=== PATIENT | female | born 1995 | race Caucasian/White ===

== ENCOUNTER 2022-06-18 05:06 | Inpatient (IN) | payer OTHER ==
[~2022-06-18] VITALS: Ht 154.9 cm; Wt 74.3 kg
[2022-06-18] VITALS (8 sets, daily range): BP systolic 111–126; BP diastolic 61–73
[~2022-06-18 05:06] MED LIST: LEVE1INJ5; PRENTAB9
[2022-06-18] MEDS ORDERED: LR 1,000 ML IV ONE (05:15)
[2022-06-18] MEDS ORDERED: LR 1,000 ML IV SCH ×2 (05:15→11:55)
[2022-06-18] MEDS ORDERED: BICITRA 30ML SOLN UDC PO ONE (06:00)
[2022-06-18 06:05] LABS: HEMATOCRIT 39.6 % (36.0-47.0); HEMOGLOBIN 13.5 g/dl (12.0-15.5); MEAN CORPUSCULAR HEMOGLOBIN 29.9 pg (27.0-33.0); MEAN CORPUSCULAR HGB CONC 34.1 g/dl (32.0-36.5); MEAN CORPUSCULAR VOLUME 87.8 fl (80.0-96.0); PLATELET COUNT, AUTOMATED 173 10^3/uL (150-450); RED BLOOD COUNT 4.51 10^6/uL (4.00-5.40); WHITE BLOOD COUNT 7.9 10^3/uL (4.0-10.0)
[2022-06-18 06:28] LABS: HEMOGLOBIN A1c 5.2 %
[2022-06-18] MEDS ORDERED: ACETAMINOPHEN 650 MG SUPP PR ONE (07:00)
[2022-06-18] MEDS ORDERED: BUPIVACAINE HCL 0.25% 10ML VIAL SC ONE (07:00)
[2022-06-18] MEDS ORDERED: ceFAZolin SOD 2 GM in IV 1 EA IV ONE (07:00)
[2022-06-18] MEDS ORDERED: AZITHROMYCIN INJ 500 MG, VIAL MATE ADAPTER 1 EACH in NS 250 ML IV ONE (07:00)
[2022-06-18] MEDS ORDERED: KETOROLAC 60MG 2ML VIAL As Ordered ONE (08:49)
[2022-06-18] MEDS ORDERED: MORPHINE PRES-FREE INJ 10 MG/10 ML VIAL As Ordered ONE (08:49)
[2022-06-18] MEDS ORDERED: OXYTOCIN INJ 10 UNITS/ML VIAL (J2590) As Ordered ONE ×2 (08:49→09:48)
[2022-06-18] MEDS: PRENATAL VITAMINS CHEWABLE TABLET PO SCH (09:00)
[2022-06-18 09:46] LABS: CORD GAS ABE V -1.7; CORD GAS HCO3 V 23.1 MEQ/L; CORD GAS PCO2 V 39.5 mmHg; CORD GAS PH V 7.385 UNITS; CORD GAS PO2 V 37.6 mmHg; CORD GAS SBC V 22.7 MEQ/L; CORD GAS TCO2 V 24.3 MEQ/L
[2022-06-18 09:47] LABS: CORD GAS ABE A 1.1; CORD GAS HCO3 A 28.8 MEQ/L; CORD GAS O2 SAT A 36.4 %; CORD GAS PCO2 A 57.8 mmHg; CORD GAS PH A 7.316 UNITS; CORD GAS PO2 A 17.3 mmHg; CORD GAS SBC A 23.8 MEQ/L; CORD GAS TCO2 A 30.6 MEQ/L
[2022-06-18] MEDS ORDERED: PHENYLephrine 500MCG 5ML (100MCG/ML) SYRINGE As Ordered ONE (09:48)
[2022-06-18] MEDS ORDERED: ONDANSETRON 4MG 2ML VIAL As Ordered ONE (09:48)
[2022-06-18] MEDS ORDERED: OXYTOCIN INJ 10 UNITS/ML VIAL (J2590) IV ONE (11:05)
[2022-06-18] MEDS ORDERED: MOM 30ML SUSPENSION UDC PO PRN (11:05)
[2022-06-18] MEDS ORDERED: SIMETHICONE 80MG CHEW TAB PO PRN (11:05)
[2022-06-18] MEDS ORDERED: DOCUSATE SODIUM 100MG CAPSULE PO PRN (11:05)
[2022-06-18] MEDS ORDERED: ACETAMINOPHEN 500 MG TAB PO PRN (11:05)
[2022-06-18] MEDS ORDERED: RHOGAM 300 MCG (1500 IU) INJ (J2790) IM SCH (11:05)
[2022-06-18] MEDS ORDERED: METHYLERGONOVINE MALEATE 0.2 MG TAB PO PRN (11:05)
[2022-06-18] MEDS ORDERED: PERCOCET 5MG/325MG TAB PO PRN ×3 (11:05→11:55)
[2022-06-18] MEDS ORDERED: OXYTOCIN DRIP 30 UNITS in IV 1 EA IV ONE (11:05)
[2022-06-18] MEDS ORDERED: OXYTOCIN DRIP 30 UNITS in IV 1 EA IV SCH (11:05)
[2022-06-18] MEDS ORDERED: METHYLERGONOVINE MALEATE 0.2 MG/ML VIAL (J2210) IM PRN (11:05)
[2022-06-18] MEDS ORDERED: ANUSOL HC CREAM 30GM TOP PRN (11:05)
[2022-06-18] MEDS ORDERED: OXYTOCIN 30 UNITS IN 0.9% NaCl 500ML IV BAG (J2590) As Ordered ONE (11:36)
[2022-06-18] MEDS ORDERED: ONDANSETRON 4MG 2ML VIAL IV PRN (11:55)
[2022-06-18] MEDS ORDERED: NALOXONE INJ 0.4MG/1ML VIAL (J2310 PER 1MG) IV PRN ×2 (11:55)
[2022-06-18] MEDS ORDERED: **NOTE PATIENT COMMENT** MISC XX SCH (11:55)
[2022-06-18] MEDS: SLF 3 ML SYR IV SCH ×2 (11:55→19:55)
[2022-06-18] MEDS ORDERED: diphenhydrAMINE 50MG/ML VIAL (J1200) IV PRN (11:55)
[2022-06-18] MEDS ORDERED: fentaNYL 100 MCG/2 ML INJECTION IV PRN (11:55)
[2022-06-18] MEDS ORDERED: METOCLOPRAMIDE INJ 10MG/2ML VIAL (J2765 PER 1) IV PRN (11:55)
[2022-06-18] MEDS: LR 1,000 ML IV SCH ×3 (15:49→23:51)
[2022-06-18] MEDS: KETOROLAC 30 MG/ML 1ML VIAL IV SCH ×2 (17:08→22:02)
[2022-06-19 02:00] VITALS: BP 102/59
[2022-06-19] MEDS: SLF 3 ML SYR IV SCH (03:55)
[2022-06-19] MEDS: KETOROLAC 30 MG/ML 1ML VIAL IV SCH (04:03)
[2022-06-19 05:40] VITALS: BP 98/66
[2022-06-19 07:01] LABS: HEMATOCRIT 29.7 % (36.0-47.0); MEAN CORPUSCULAR HEMOGLOBIN 30.6 pg (27.0-33.0); PLATELET COUNT, AUTOMATED 133 10^3/uL (150-450); WHITE BLOOD COUNT 6.8 10^3/uL (4.0-10.0)
[2022-06-19 07:09] LABS: HEMOGLOBIN 10.1 g/dl (12.0-15.5)
[2022-06-19] MEDS: PRENATAL VITAMINS CHEWABLE TABLET PO SCH ×2 (09:00→10:11)
[2022-06-19 10:00] VITALS: BP 103/50
[2022-06-19 14:00] VITALS: BP 101/52
[2022-06-19] MEDS: IBUPROFEN 600MG TAB PO PRN ×2 (15:49→21:52)
[2022-06-19] MEDS ORDERED: HOME MED LIST COMPLETE! XX SCH (17:50)
[2022-06-19 18:00] VITALS: BP 115/56
[2022-06-19] MEDS: ACETAMINOPHEN TAB 650MG DOSE (2X325MG) PO PRN (18:26)
[2022-06-19 22:15] VITALS: BP 108/61
[2022-06-20 01:55] VITALS: BP 125/63
[2022-06-20 05:45] VITALS: BP 117/66
[2022-06-20] MEDS ORDERED: ACET1TAB55 PO (06:24)
[2022-06-20] MEDS ORDERED: IBUP-1022 PO (06:24)
[2022-06-20] MEDS ORDERED: COLA100C5 PO (06:24)
[2022-06-20] MEDS ORDERED: PERCOCET PO (06:24)
[2022-06-20] MEDS: PRENATAL VITAMINS CHEWABLE TABLET PO SCH (08:09)
[2022-06-20] MEDS: ACETAMINOPHEN TAB 650MG DOSE (2X325MG) PO PRN (08:10)
[2022-06-20] MEDS ORDERED: MEASLES,MUMPS,RUBELLA VACCINE INJ (MMR-II) (90707) SC.IMMUN ONE (09:00)
[2022-06-20] MEDS: IBUPROFEN 600MG TAB PO PRN (11:20)
== END 2022-06-20 12:00 | disposition home or self-care (01) | DRG 785 ==
LOC: M LDI 05:06 → EDSTATUS 07:30 → M OBS 12:03
PROVIDERS: ADMIT Obstetrics & Gynecology; ATTEND Obstetrics & Gynecology
PROC: 0UL70DZ Occlusion of Bilateral Fallopian Tubes with Intraluminal Device, Open Approach (ICD-10-PCS; 2022-06-18)
PROC: 10D00Z1 Extraction of Products of Conception, Low, Open Approach (ICD-10-PCS; principal; 2022-06-18 07:30)
DX: O34.211 Maternal care for low transverse scar from previous cesarean delivery (principal); O24.424 Gestational diabetes mellitus in childbirth, insulin controlled; Z3A.37 37 weeks gestation of pregnancy; Z37.0 Single live birth; Z30.2 Encounter for sterilization; O75.89 Other specified complications of labor and delivery